=== PATIENT | male | born 1945 | race Caucasian/White ===

== ENCOUNTER 2019-04-02 12:52 | Outpatient (REF) | payer MEDICARE, BC, SELFPAY ==
[2019-04-02 19:02] LABS: CREATININE 1.08 mg/dL (0.70-1.30)
== END 2019-04-02 13:12 ==
LOC: LBN 12:52
PROVIDERS: PCP Internal Medicine; Visit Provider Surgery
DX: I71.4 Abdominal aortic aneurysm, without rupture (principal)
CPT/HCPCS: 82565

== ENCOUNTER 2019-05-29 16:14 | Outpatient (REF) | payer MEDICARE, BC, SELFPAY ==
[2019-05-29 19:14] LABS: Bilirubin Negative (Negative); Blood Trace-intact (Negative); Clarity Turbid (Clear); Glucose Negative (Negative); Ketones Negative (Negative); Leukocyte Esterase Negative (Negative); Nitrite Negative (Negative); Specific Gravity >= 1.030 (1.005-1.025); Urobilinogen 0.2 EU/dL (Up TO 0.2)
[2019-05-29 19:15] LABS: HCT 49.7 % (40.0-50.0); HGB 16.8 g/dL (13.5-17.5); Mean Corp. HGB Concentration 33.8 g/dL (32.0-36.0); Mean Corpuscular Volume 100.6 fL (80-95); Mean Platelet Volume 11.3 fL (8.0-11.0); Platelet Count 182 x1000/uL (130-400); RBC 4.94 m/cumm (4.50-6.00); RBC Distribution Width 13.8 % (11.8-14.1); White Blood Cell Count 7.55 k/cumm (4.4-10.8)
[2019-05-29 19:24] LABS: Anion Gap 7.8 mmol/L (3-11); BUN 13 mg/dL (7-18); CO2 29.2 mmol/L (21.0-32.0); CREATININE 0.89 mg/dL (0.70-1.30); Chloride 105 mmol/L (98-107); Glucose 107 mg/dL (74-106); Potassium 4.3 mmol/L (3.5-5.1); Sodium 142 mmol/L (136-145)
[2019-05-31 11:18] LABS: Prealbumin 13 mg/dL (20-40)
== END 2019-05-29 16:34 ==
LOC: LBN 16:14
PROVIDERS: PCP Internal Medicine; Visit Provider Surgery
DX: T82.330D Leakage of aortic (bifurcation) graft (replacement), subsequent encounter (principal); I71.4 Abdominal aortic aneurysm, without rupture; Z01.818 Encounter for other preprocedural examination
CPT/HCPCS: 80048; 85027; 81003; 81015; 84134

== ENCOUNTER 2020-02-21 16:19 | Outpatient (REF) | payer MEDICARE, BC, SELFPAY ==
[2020-02-21 19:19] LABS: ALT 24 U/L (16-63); Anion Gap 4.7 mmol/L (3-11); BUN 14 mg/dL (7-18); CO2 29.3 mmol/L (21.0-32.0); CREATININE 1.01 mg/dL (0.70-1.30); Calcium 8.7 mg/dL (8.5-10.1); Chloride 107 mmol/L (98-107); Glucose 98 mg/dL (74-106); LDL CHOLESTEROL 86 mg/dL (<100); Potassium 4.4 mmol/L (3.5-5.1); Sodium 141 mmol/L (136-145)
== END 2020-02-21 16:39 ==
LOC: NCHCN 16:19
PROVIDERS: PCP Internal Medicine; Visit Provider Internal Medicine
DX: F17.200 Nicotine dependence, unspecified, uncomplicated (principal); Z13.6 Encounter for screening for cardiovascular disorders; Z95.828 Presence of other vascular implants and grafts
CPT/HCPCS: 80048; 83721; 84460

== ENCOUNTER 2021-04-23 09:06 | Outpatient (REF) | payer MEDICARE, SELFPAY ==
[2021-04-23 18:58] LABS: CREATININE 1.1 mg/dL (0.70-1.30)
[2021-04-23 19:00] LABS: Anion Gap 7.9 mmol/L (3-11); BUN 14 mg/dL (7-18); CO2 28.1 mmol/L (21.0-32.0); CREATININE 1.1 mg/dL (0.70-1.30); Calculated LDL 81 mg/dL (<100); Chloride 107 mmol/L (98-107); Cholesterol 139 mg/dL (<200); Glucose 105 mg/dL (74-106); HDL Cholesterol 46 mg/dL (40-60); Potassium 4.1 mmol/L (3.5-5.1); Sodium 143 mmol/L (136-145); Triglyceride 60 mg/dL (<150)
== END 2021-04-23 09:07 | disposition home or self-care (01) ==
LOC: NCHCN 09:06
PROVIDERS: Surgery; PCP Internal Medicine; Visit Provider Internal Medicine
DX: I71.4 Abdominal aortic aneurysm, without rupture (principal); E66.9 Obesity, unspecified; T82.330D Leakage of aortic (bifurcation) graft (replacement), subsequent encounter
CPT/HCPCS: 80048; 80061; 82565

== ENCOUNTER 2022-03-02 14:08 | Outpatient (REF) | payer MEDICARE, SELFPAY ==
[2022-03-02 21:21] LABS: ALT 22 U/L (16-63); Anion Gap 7.4 mmol/L (3-11); BUN 13 mg/dL (7-18); CO2 28.6 mmol/L (21.0-32.0); CREATININE 1.1 mg/dL (0.70-1.30); Calcium 8.8 mg/dL (8.5-10.1); Chloride 105 mmol/L (98-107); Estimated GFR 69.57 (mL/min/1.73m2); Glucose 104 mg/dL (74-106); Potassium 4.3 mmol/L (3.5-5.1); Sodium 141 mmol/L (136-145)
[2022-03-02 21:36] LABS: Creatine Kinase 73 U/L (39-308)
== END 2022-03-02 14:09 | disposition home or self-care (01) ==
LOC: NCHCN 14:08
PROVIDERS: PCP Internal Medicine; Visit Provider Internal Medicine
DX: R07.89 Other chest pain (principal); Z00.00 Encounter for general adult medical examination without abnormal findings
CPT/HCPCS: 80048; 82550; 84460

== ENCOUNTER 2024-10-31 17:39 | Outpatient (REF) | payer MEDICARE, SELFPAY ==
[2024-10-31 19:47] LABS: ALT 19 U/L (16-63); AST 22 U/L (15-37); Albumin 3.6 g/dL (3.4-5.0); Alkaline Phosphatase 115 U/L (46-116); Anion Gap 5.6 mmol/L (3-11); BUN 14 mg/dL (7-18); CO2 30.4 mmol/L (21.0-32.0); Calcium 9.4 mg/dL (8.5-10.1); Calculated LDL 61 mg/dL (<100); Chloride 105 mmol/L (98-107); Cholesterol 126 mg/dL (<200); Estimated GFR 76.56 (mL/min/1.73m2); Glucose 101 mg/dL (74-106); HDL Cholesterol 49 mg/dL (>or=40); Sodium 141 mmol/L (136-145); Total Protein 8.2 g/dL (6.4-8.2); Triglyceride 80 mg/dL (<150)
== END 2024-10-31 17:40 | disposition home or self-care (01) ==
LOC: NCHCN 17:39
PROVIDERS: PCP Internal Medicine; Visit Provider Internal Medicine
DX: E78.5 Hyperlipidemia, unspecified (principal)
CPT/HCPCS: 80053; 80061